=== PATIENT | male | born 1990 | race Caucasian/White ===

== ENCOUNTER 2017-03-03 08:14 | Observation (INO) | payer BC ==
[~2017-03-03 08:14] MED LIST: Bupivacaine 0.5% 50 ML MDV ONE; Lidocaine 1% with EPINEPHrine 1:100,000 50 ML MDV ONE
[2017-03-03] MEDS ORDERED: Lactated Ringers 1,000 ML IV SCH ×2 (09:00→16:30)
[2017-03-03] MEDS ORDERED: Midazolam 1 MG/ML 2 ML SDV ONE (09:21)
[2017-03-03] MEDS ORDERED: fentaNYL 100 MCG/2 ML SDV ONE ×2 (09:21→09:38)
[2017-03-03] MEDS ORDERED: Propofol 200 MG/20 ML SDV ONE ×3 (09:21→10:45)
[2017-03-03] MEDS ORDERED: Clindamycin Phosphate 900 MG in Sodium Chloride 0.9% 100 ML IV ONE (09:45)
[2017-03-03] MEDS ORDERED: Acetaminophen/HYDROcodone 325-5 MG Tab PO PRN (11:37)
[2017-03-03] MEDS: Acetaminophen/HYDROcodone 325-5 MG Tab PO PRN ×3 (12:35→23:04)
[2017-03-03] MEDS ORDERED: Meperidine PF 75 MG/ML Syringe IM ONE (14:10)
[2017-03-03] MEDS ORDERED: hydrOXYzine HCl 50 MG/ML SDV IM ONE (14:10)
[2017-03-03] MEDS ORDERED: Ondansetron 4 MG/2 ML SDV IVPUSH PRN (16:27)
[2017-03-03] MEDS ORDERED: HYDROmorphone 0.5 MG/0.5 ML Syringe IVPUSH PRN (16:31)
[2017-03-04] MEDS: Acetaminophen/HYDROcodone 325-5 MG Tab PO PRN ×2 (04:44→08:45)
--- NOTE | 2017-03-04 06:41 | PCM.DCSUM1 ---
Discharge Summary - Hospital Course Free Text/Narrative:: This 27 year old white male had an incarcerated (with omentum) left inguinal hernia which was repaired yesterday. We had to do a partial omentectomy to reduce his hernia. He had problems with syncope and was unable to go home yesterday, so was kept over night. Now he feels fine and wants to go home. He has not yet had a full meal. He will be discharged to home after he eats. Brief History: See above narrative. - Discharge Data Discharge Date: 03/04/17 Discharge Disposition: Home, Self-Care 01 Condition: Good - Discharge Diagnosis/Problem(s) (1) Inguinal hernia of left side without obstruction or gangrene SNOMED Code(s): 92460427 ICD Code: K40.90 - UNIL INGUINAL HERNIA, W/O OBST OR GANGR, NOT SPCF RECUR Status: Acute Current Visit: Yes - Patient Summary/Data Consults: Consultations 03/03/17 16:27 Respiratory Care Assess and Treatment [CONS] Routine Comment: Physician Instructions: Hospital Course: See above narrative. - Patient Instructions Diet: Usual Diet as Tolerated, Regular Diet as Tolerated Activity: Apply Ice, As Tolerated, No Lifting Over 20 Pounds, No Strenuous Activities, Rest and Relax Today Driving: Do Not Drive Driving, Other: for 24 hours Showering/Bathing: May Shower Showering/Bathing, Other: in 48 hours Wound/Incision Care: Keep Operative Site/Wound Site Clean and Dry Notify Provider of: Fever, Increased Pain, Swelling and Redness, Drainage, Nausea and/or Vomiting - Discharge Plan Home Medications: Home Meds Amino Acids [Amino Acid] 4 tab PO DAILY 02/28/17 [History] Cholecalciferol (Vitamin D3) [Vitamin D3] 2,000 unit PO DAILY 02/28/17 [History] Melatonin 5 mg PO DAILY 02/28/17 [History] Multivitamin [Multi-Vitamin Daily] 1 tab PO DAILY 02/28/17 [History] Valerian Root [Valerian] 1,400 mg PO DAILY 02/28/17 [History] Acetaminophen/HYDROcodone [Campbell 325-5 MG] 1 - 2 tab PO Q4H PRN #30 tablet 03/04 [Rx] Referrals: Murray Martins MD [Physician] - 03/17/17 1:00 pm - Discharge Summary/Plan Comment DC Time >30 min.: Yes Discharge Summary/Plan Comment: See above narrative. - General Info Date of Service: 03/04/17 Admission Dx/Problem (Free Text: Incarcerated left inguinal hernia. Functional Status: Reports: pain controlled, tolerating diet, ambulating, urinating, incentive spirometry - Review of Systems General: Reports: No Symptoms HEENT: Reports: no symptoms Pulmonary: Reports: no symptoms Cardiovascular: Reports: No Symptoms Gastrointestinal: Reports: No symptoms Genitourinary: Reports: no symptoms Musculoskeletal: Reports: no symptoms Skin: Reports: no symptoms Neurological: Reports: No Symptoms Psychiatric: Reports: no symptoms - Patient Data Vitals - Most Recent: Last Vital Signs Temp 98.2 F 03/04/17 03:00 Pulse 66 03/04/17 03:00 Resp 16 03/04/17 03:00 BP 104/67 03/04/17 03:00 Pulse Ox 96 03/04/17 03:00 Orthostatic Blood Pressure [ 90/44 Standing] Orthostatic Blood Pressure [ 92/59 Sitting] Orthostatic Blood Pressure [ 108/64 Supine] I&O - Last 24 hours: Intake & Output 03/03/17 03/03/17 03/04/17 14:59 22:59 06:59 Intake Total 490 480 Output Total 1350 750 Balance -860 -270 Lab Results - Last 24 hrs: Laboratory Results - last 24 hr 03/03/17 03/03/17 03/03/17 Range/Units 16:47 16:47 23:55 WBC 16.2 H 10.8 (4.5-11.0) K/uL RBC 4.48 4.23 L (4.30-5.90) M/uL Hgb 14.1 13.1 (12.0-15.0) g/dL Hct 40.3 38.2 L (40.0-54.0) % MCV 90 90 (80-98) fL MCH 32 H 31 (27-31) pg MCHC 35 34 (32-36) % Plt Count 230 224 (150-400) K/uL Blood Type O POSITIVE Gel Antibody Screen Negative 03/04/17 Range/Units 04:50 WBC 8.9 (4.5-11.0) K/uL RBC 4.05 L (4.30-5.90) M/uL Hgb 13.0 (12.0-15.0) g/dL Hct 37.2 L (40.0-54.0) % MCV 92 (80-98) fL MCH 32 H (27-31) pg MCHC 35 (32-36) % Plt Count 208 (150-400) K/uL Blood Type Gel Antibody Screen Med Orders - Current: Current Medications Hydrocodone Bitart/Acetaminophen (Campbell 325-5 Mg) 1 - 2 tab PO Q4H PRN PRN Reason: Pain Last Admin: 03/04/17 04:44 Dose: 1 tab Hydromorphone HCl (Dilaudid) 0.5 mg IVPUSH Q1H PRN PRN Reason: Pain Lactated Ringer's (Ringers, Lactated) 1,000 mls @ 125 mls/hr IV ASDIRECTED MATTEO Last Admin: 03/03/17 23:05 Dose: 125 mls/hr Ondansetron HCl (Zofran) 4 mg IVPUSH Q6H PRN PRN Reason: Nausea/Vomiting Discontinued Medications Hydrocodone Bitart/Acetaminophen (Campbell 325-5 Mg) 1 - 2 tab PO Q4H PRN PRN Reason: Pain Bupivacaine HCl (Marcaine 0.5%) Confirm Administered Dose 50 ml .ROUTE .STK-MED ONE Stop: 03/03/17 06:48 Last Admin: 03/03/17 09:50 Dose: 10 ml Fentanyl (Sublimaze) Confirm Administered Dose 100 mcg .ROUTE .STK-MED ONE Stop: 03/03/17 09:22 Fentanyl (Sublimaze) Confirm Administered Dose 100 mcg .ROUTE .STK-MED ONE Stop: 03/03/17 09:39 Hydroxyzine HCl (Vistaril) 50 mg IM ONETIME ONE Stop: 03/03/17 14:11 Last Admin: 03/03/17 15:01 Dose: 50 mg Clindamycin Phosphate 900 mg/ (Sodium Chloride) 106 mls @ 200 mls/hr IV ONETIME ONE Stop: 03/03/17 10:16 Last Admin: 03/03/17 09:26 Dose: 200 mls/hr Lactated Ringer's (Ringers, Lactated) 1,000 mls @ 0 mls/hr IV ASDIRECTED MATTEO PRN Reason: KVO Last Admin: 03/03/17 09:07 Dose: 25 mls/hr Lidocaine/Epinephrine (Xylocaine 1% With Epinephrine 1:100,000) Confirm Administered Dose 50 ml .ROUTE .STK-MED ONE Stop: 03/03/17 06:48 Last Admin: 03/03/17 09:51 Dose: 10 ml Meperidine HCl (Demerol) 75 mg IM ONETIME ONE Stop: 03/03/17 14:11 Last Admin: 03/03/17 15:01 Dose: 75 mg Midazolam HCl (Versed 1 Mg/Ml) Confirm Administered Dose 2 mg .ROUTE .STK-MED ONE Stop: 03/03/17 09:22 Propofol (Diprivan 20 Ml) Confirm Administered Dose 200 mg .ROUTE .STK-MED ONE Stop: 03/03/17 09:22 Propofol (Diprivan 20 Ml) Confirm Administered Dose 200 mg .ROUTE .STK-MED ONE Stop: 03/03/17 09:22 Propofol (Diprivan 20 Ml) Confirm Administered Dose 200 mg .ROUTE .STK-MED ONE Stop: 03/03/17 10:46 - Exam General: Reports: alert, oriented, cooperative, no acute distress Lungs: Reports: Clear to auscultation, Normal respiratory effort Cardiovascular: Reports: Regular Rate, Regular Rhythm Abdomen: Reports: bowel sounds present, soft, no tenderness, no distension (Male) Exam: Normal inspection, Other (Incision appears well. ) Back Exam: Reports: normal inspection, full range of motion Extremities: Reports: no edema Skin: Reports: warm, dry, intact Wound/Incisions: Reports: healing well Neurological: Reports: no new focal deficit Psy/Mental Status: Reports: alert, normal affect, normal mood Discharge Operative/Procedures - Procedures Performed Operations: Left inguinal hernia repair with a mesh plug and patch. *Q Meaningful Use (DIS) - VTE *Q VTE Criteria *Q: - Stroke *Q Stroke Criteria *Q: - AMI *Q AMI Criteria *Q:
[2017-03-04 07:32] VITALS: BP 93/52
--- NOTE | 2017-03-04 08:16 | OR ---
DATE OF PROCEDURE: 03/03/2017 PREOPERATIVE DIAGNOSIS: Incarcerated left inguinal hernia. POSTOPERATIVE DIAGNOSIS: Complete incarcerated with omentum indirect left inguinal hernia. PROCEDURES: Partial omentectomy, reduction of left inguinal hernia, repair of same with a PerFix mesh plug and patch manufactured by [employer]. ANESTHESIA: IV anesthesia with monitored anesthesia care. INDICATIONS: This 27-year-old white male says he has had a mass in his left scrotum for all of his life. Multiple practitioners have given him different diagnoses including epididymitis, varicocele, or hydrocele. He recently saw a urologist who said this was an inguinal hernia and referred him to me for repair. He denies predisposing factors for hernia formation. No signs of obstruction. On exam, he has a large left scrotal mass which courses up into his inguinal canal consistent with a left inguinal hernia. I could not completely reduce this. I counseled him for repair of this left inguinal hernia including risks and alternatives and he gave his informed consent to proceed. DESCRIPTION OF PROCEDURE: After adequate IV anesthesia was obtained, the patient's lower abdomen, groin, and genitalia were prepped and draped in the usual sterile fashion. Time-out was held. Lidocaine 1% with epinephrine in a 50:50 mix with 0.5% Marcaine was infiltrated about the left groin. A left groin incision was then made and carried deep using Bovie cautery through Daphney's fascia to the external oblique. The external oblique was opened parallel to the course of its fibers from the internal to the external ring. The spermatic cord was mobilized and a Layton drain placed about it. We reduced the testicle up into the incision. He had a large mass involving the spermatic cord. The cremasteric fibers were . The ilioinguinal nerve was divided. The mass was entered and was found to be omentum. The hernia sac went all way to the testicle consistent with a complete hernia. The hernia sac was dissected and excised off the testicle. We attempted to reduce the omentum, but we could not do this. It was quite large. We splayed the omentum out and divided a portion of it with the MOODY and sent this to the laboratory. We were then able to reduce the rest of the residual omentum. The hernia sac was then dissected back to the peritoneal reflection. We excised the excess sac and sent this to the laboratory. The sac was closed with 3-0 Vicryl. A large PerFix mesh plug manufactured by [employer] was obtained. The plug was placed underneath the fascia through the defect. The internal leaves were approximated to the associated fascia with horizontal mattress stitches of 3-0 Vicryl. The onlay patch was obtained, cut to appropriate length and placed over the inguinal floor. It was anchored to itself around the spermatic cord with a horizontal mattress stitches of 3-0 Vicryl which was also anchored down to the inguinal floor with interrupted 3-0 Vicryl suture. The spermatic cord was returned to the inguinal canal and the testicle was placed back in the scrotum by pulling on the scrotum using the gubernaculum to place it down. The external oblique was then closed with a running stitch of 3-0 Vicryl. We injected additional local. Interrupted 3-0 Vicryl stitches were placed to approximate Daphney's fascia. Vicryl 4-0 used in a subcuticular stitch was placed to approximate the skin. Dermabond was applied. The patient tolerated the procedure well and brought to the recovery room in a good condition. Murray Martins MD /[id number] [email or web address]
== END 2017-03-04 09:00 | disposition home or self-care (01) ==
LOC: JP.SDS 08:14 → JP.SDSSCHI 08:14 → EDSTATUS 09:45 → JP.MS 16:40
PROVIDERS: ADMIT Surgery; ATTEND Surgery
DX: K40.30 Unilateral inguinal hernia, with obstruction, without gangrene, not specified as recurrent (principal); Z79.899 Other long term (current) drug therapy; Z88.0 Allergy status to penicillin
CPT/HCPCS: 36415; 49507; 85027; 86850; 86900; 86901; 88302; 94762; A9270; C1781; G0378; J2175; J2250; J2704; J3010; J3410; J7030; J7120; S0077